=== PATIENT | female | born 1970 | race Caucasian/White ===

== ENCOUNTER 2018-01-20 06:36 | Emergency (ER) | payer OTHER ==
[2018-01-20] MEDS: FAMOTIDINE 20 MG TAB PO (07:01)
[2018-01-20] MEDS: ONDANSETRON (ODT) 4 MG TAB ODT ×2 (07:02→07:10)
[2018-01-20] MEDS: HYDROCODONE/APAP (5/325) TAB PO (07:02)
[2018-01-20 07:17] LABS: ADD MAN DIFF? NO
[2018-01-20 07:23] LABS: ADD UMIC NO; UR ASCORBIC ACID NEGATIVE (NEGATIVE); UR BILIRUBIN (Dip) NEGATIVE (NEGATIVE); UR BLOOD (Dip) NEGATIVE (NEGATIVE); UR CLARITY CLEAR (CLEAR); UR COLOR YELLOW (YELLOW); UR GLUCOSE (Dip) NEGATIVE (NEGATIVE); UR KETONES (Dip) NEGATIVE (NEGATIVE); UR LEUKOCYTE ESTERASE (Dip) NEGATIVE Leu/ul (NEGATIVE); UR NITRITE (Dip) NEGATIVE (NEGATIVE); UR SPECIFIC GRAVITY (Dip) 1.014 (1.003-1.030); UR TOTAL PROTEIN (Dip) NEGATIVE (NEGATIVE); UR UROBILINOGEN (Dip) 1+ mg/dL (NEGATIVE)
[2018-01-20 07:24] LABS: BASOPHIL # 0.1 10^3/ul (0.0-0.1); BASOPHILS % 0.5 % (0.0-2.0); EOSINOPHILS # 0.1 10^3/ul (0.0-0.5); EOSINOPHILS % 0.5 % (0.0-7.0); HEMATOCRIT 42.5 % (37.0-47.0); HEMOGLOBIN 14.4 g/dl (12.0-16.0); LYMPHOCYTES # 1.4 10^3/ul (0.8-2.9); LYMPHOCYTES % 12.9 % (15.0-51.0); MEAN CORPUSCULAR HEMOGLOBIN 30.2 pg (29.0-33.0); MEAN CORPUSCULAR HGB CONC 33.9 g/dl (32.0-37.0); MEAN CORPUSCULAR VOLUME 89.1 fl (82.0-101.0); MEAN PLATELET VOLUME 9.6 fl (7.4-10.4); MONOCYTE # 0.7 10^3/ul (0.3-0.9); MONOCYTES % 6.7 % (0.0-11.0); NEUTROPHIL # 8.6 10^3/ul (1.6-7.5); PLATELET COUNT 245 10^3/UL (140-415); RED BLOOD COUNT 4.77 10^6/ul (4.20-5.40); RED CELL DISTRIBUTION WIDTH 12.9 % (11.5-14.5)
[2018-01-20 07:24] LABS: WHITE BLOOD COUNT 10.8 10^3/ul (4.8-10.8)
[2018-01-20 07:52] LABS: ALANINE AMINOTRANSFERASE 142 IU/L (13-69); ALBUMIN 4.5 g/dl (3.3-4.9); ALKALINE PHOSPHATASE 65 IU/L (42-121); ANION GAP 13 (8-16); ASPARTATE AMINO TRANSFERASE 132 IU/L (15-46); BILIRUBIN,INDIRECT 1.3 mg/dl (0-1.1); BILIRUBIN,TOTAL 1.3 mg/dl (0.2-1.3); BLOOD UREA NITROGEN 7 mg/dl (7-20); CALCIUM 9.4 mg/dl (8.4-10.2); CARBON DIOXIDE 31 mmol/L (21-31); CHLORIDE 99 mmol/L (97-110); CREATININE 0.55 mg/dl (0.44-1.00); GLUCOSE 155 mg/dl (70-220); LIPASE 181 U/L (23-300); POTASSIUM 4.6 mmol/L (3.5-5.1); SODIUM 138 mmol/L (135-144); TOTAL PROTEIN 7.5 g/dl (6.1-8.1)
== END 2018-01-20 08:30 | disposition home or self-care (01) ==
LOC: FTE 06:36
DX: K80.20 Calculus of gallbladder without cholecystitis without obstruction (principal); I10 Essential (primary) hypertension
CPT/HCPCS: 36415; 76705; 80053; 81003; 81025; 83690; 85025; 99284-25

== ENCOUNTER 2018-03-14 08:42 | Day surgery (SDC) | payer OTHER ==
[2018-03-14 10:03] LABS: ADD MAN DIFF? NO
[2018-03-14 10:05] LABS: WHITE BLOOD COUNT 6.6 10^3/ul (4.8-10.8)
[2018-03-14 10:05] LABS: BASOPHIL # 0.1 10^3/ul (0.0-0.1); BASOPHILS % 0.8 % (0.0-2.0); EOSINOPHILS # 0.1 10^3/ul (0.0-0.5); EOSINOPHILS % 2.1 % (0.0-7.0); HEMATOCRIT 39.1 % (37.0-47.0); HEMOGLOBIN 13.3 g/dl (12.0-16.0); LYMPHOCYTES # 2.1 10^3/ul (0.8-2.9); LYMPHOCYTES % 31.1 % (15.0-51.0); MEAN CORPUSCULAR VOLUME 91.1 fl (82.0-101.0); MEAN PLATELET VOLUME 9.3 fl (7.4-10.4); MONOCYTE # 0.4 10^3/ul (0.3-0.9); MONOCYTES % 6.5 % (0.0-11.0); NEUTROPHIL # 3.9 10^3/ul (1.6-7.5); NEUTROPHILS % 59.3 % (39.0-77.0); PLATELET COUNT 218 10^3/UL (140-415); RED BLOOD COUNT 4.29 10^6/ul (4.20-5.40); RED CELL DISTRIBUTION WIDTH 12.4 % (11.5-14.5)
[2018-03-14 10:24] LABS: PT RATIO 1.1
[2018-03-14 10:27] LABS: INR 1.05; PARTIAL THROMBOPLASTIN TIME 31.9 Sec (25.0-35.0); PROTIME 13.8 Sec (11.9-14.9)
[2018-03-14 10:31] LABS: ALANINE AMINOTRANSFERASE 107 IU/L (13-69); ALBUMIN 3.4 g/dl (3.3-4.9); ALBUMIN/GLOBULIN RATIO 1.06; ALKALINE PHOSPHATASE 63 IU/L (42-121); ANION GAP 14 (8-16); ASPARTATE AMINO TRANSFERASE 83 IU/L (15-46); BILIRUBIN,INDIRECT 0.6 mg/dl (0-1.1); BILIRUBIN,TOTAL 0.6 mg/dl (0.2-1.3); BLOOD UREA NITROGEN 9 mg/dl (7-20); CALCIUM 8.8 mg/dl (8.4-10.2); CARBON DIOXIDE 27 mmol/L (21-31); CHLORIDE 104 mmol/L (97-110); CREATININE 0.45 mg/dl (0.44-1.00); GLUCOSE 111 mg/dl (70-220); POTASSIUM 3.9 mmol/L (3.5-5.1); SODIUM 141 mmol/L (135-144); TOTAL PROTEIN 6.6 g/dl (6.1-8.1)
[2018-03-14] MEDS ORDERED: CEFAZOLIN 2 GM/50 ML (PMX) 50 ML IVPB (11:30)
[2018-03-14] MEDS ORDERED: hydrALAzine 20 MG INJ IV (13:30)
[2018-03-14] MEDS ORDERED: OXYCODONE/ACETAMINOPHEN (5/325) TAB PO (13:30)
[2018-03-14] MEDS ORDERED: HYDROmorphONE 1 MG/5 ML IV SYRINGE IV (13:30)
[2018-03-14] MEDS ORDERED: FENTAnyl 50 MCG/ML VIAL IV ×2 (13:30)
[2018-03-14] MEDS ORDERED: DIPHENHYDRAMINE 50 MG INJ IV (13:30)
[2018-03-14] MEDS ORDERED: LABETALOL HCL 20MG INJ IV (13:30)
[2018-03-14] MEDS ORDERED: METOCLOPRAMIDE 10 MG INJ IV (13:30)
[2018-03-14] MEDS ORDERED: MEPERIDINE 25 MG INJ IV (13:30)
[2018-03-14] MEDS ORDERED: MIDAZOLAM 1 MG/ML 2 ML INJ IV (13:30)
[2018-03-14] MEDS ORDERED: EPHEDrine SULFATE 50 MG/5 ML SYG IV (13:30)
[2018-03-14] MEDS ORDERED: GLYCOPYRROLATE 0.4 MG INJ ×2 (13:31→13:50)
[2018-03-14] MEDS ORDERED: NEOSTIGMINE 3 MG/3 ML SYRINGE (13:31)
[2018-03-14] MEDS ORDERED: PROPOFOL 20 ML (13:31)
[2018-03-14] MEDS ORDERED: LIDOCAINE 2% (SDV) 5 ML INJ (13:31)
[2018-03-14] MEDS ORDERED: SUCCINYLCHOLINE CHLORIDE 100 MG/5 ML SYG IV (13:31)
[2018-03-14] MEDS ORDERED: ROCURONIUM 50 MG INJ (13:31)
[2018-03-14] MEDS ORDERED: CEFAZOLIN 1 GM INJ (13:33)
[2018-03-14] MEDS ORDERED: ONDANSETRON 4 MG INJ (13:33)
[2018-03-14] MEDS ORDERED: METOCLOPRAMIDE 10 MG INJ (13:33)
[2018-03-14] MEDS ORDERED: FENTAnyl 50 MCG/ML VIAL (13:33)
[2018-03-14] MEDS: BUPIVACAINE 0.25% (MPF) 30 ML INJ (14:08)
[2018-03-14] MEDS ORDERED: HYDROCODONE/APAP (5/325) TAB PO (14:30)
[2018-03-14] MEDS: ONDANSETRON 4 MG INJ IV (14:39)
[2018-03-14] MEDS: HYDROmorphONE 1 MG/5 ML IV SYRINGE IV ×2 (14:39→14:45)
[2018-03-14] MEDS: FENTAnyl 50 MCG/ML VIAL IV ×2 (14:51→14:59)
[2018-03-14] MEDS: SOD CHLORIDE 0.9% 1,000 ML IV (15:01)
[2018-03-14] MEDS: OXYCODONE/ACETAMINOPHEN (5/325) TAB PO (15:05)
== END 2018-03-14 16:26 | disposition home or self-care (01) ==
LOC: SDS 08:42
DX: K80.10 Calculus of gallbladder with chronic cholecystitis without obstruction (principal)
CPT/HCPCS: 47562; 80053; 85025; 85610; 85730; 88304